=== PATIENT | male | born 1995 | race Caucasian/White ===

== ENCOUNTER → 2023-04-08 | Outpatient (CLI) | payer OTHER ==
--- NOTE | 2023-04-10 09:28 | MR ---
EXAMINATION TYPE: MR brain wo con DATE OF EXAM: 04/08/2023 9:03 PM COMPARISON: None. 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 No gadolinium was given. FINDINGS: The osborne-white junctions, ventricular system, and cisterns appear unremarkable. No evidence for acti ve demyelination or evidence for perpendicularly oriented white matter change. Midline structures garrett w no abnormality. Diffusion-weighted imaging shows no evidence of restricted diffusion. The susceptib ility weighted images do not reveal any evidence for micro-hemorrhage. The bone marrow signal is within normal limits. Paranasal sinuses and mastoid air cells: No significant paranasal sinus disease. Mild motion artifact. The globes and orbits. The globes appear symmetrical. Signal intensity of the globes and optic nerves are within normal limits. The intraorbital fat appears preserved. Both lacr imal glands are unremarkable. The extraocular muscles appear symmetric. After administration of contr ast, no abnormal enhancement is seen. IMPRESSION: 1. No evidence of intraorbital mass or significant abnormality. 2. No evidence of intracranial mass or acute/subacute infarct. 3. No evidence for active demyelination or demyelination to suggest multiple sclerosis.
== END | disposition home or self-care (01) ==
LOC: RADMRIMAIN 20:00
PROVIDERS: ATTEND Family Medicine
DX: H20.9 Unspecified iridocyclitis (principal)
CPT/HCPCS: 70551